=== PATIENT | male | born 1970 | race African-American/Black ===

== ENCOUNTER 2023-02-18 10:33 | Emergency (ER) | payer OTHER ==
[~2023-02-18] VITALS: Ht 180.3 cm; Wt 109.0 kg
[~2023-02-18 10:33] MED LIST: guaiFENesin ER TABLET 600 MG TAB PO SCH
[2023-02-18] MEDS ORDERED: BENZONATATE 100MG CAPSULE PO ONE (13:15)
[2023-02-18] MEDS ORDERED: MUCI1TAB16 PO (14:33)
[2023-02-18] MEDS ORDERED: BENZ200C70 PO (14:33)
[2023-02-18] MEDS ORDERED: SALI0.6530 NARES (14:36)
[2023-02-18 14:50] VITALS: BP 124/77; TEMP 97.9; O2SAT 98
[2023-02-18] MEDS ORDERED: guaiFENesin ER TABLET 600 MG TAB PO SCH (21:00)
== END 2023-02-18 14:49 | disposition home or self-care (01) ==
LOC: M ED 10:33
DX: R05.9 Cough, unspecified (principal); R09.81 Nasal congestion; C90.00 Multiple myeloma not having achieved remission

== ENCOUNTER 2023-11-02 17:48 | Emergency (ER) | payer OTHER ==
[~2023-11-02] VITALS: Ht 182.9 cm; Wt 97.4 kg
[~2023-11-02 17:48] MED LIST changes: +BENZ200C70 PO; +MUCI1TAB16 PO; +SODI88SP NARES; -guaiFENesin ER TABLET 600 MG TAB PO SCH
[2023-11-02 17:50] VITALS: TEMP 97.8
[2023-11-02 20:32] LABS: VENOUS BASE EXCESS 2.1 (-2.0-2.0); VENOUS HCO3 27.7 MMOL/L (23.0-27.0); VENOUS O2 SATURATION 94.1 % (60.0-80.0); VENOUS PH 7.388 UNITS (7.330-7.430); VENOUS STANDARD HCO3 26.2 MMOL/L; VENOUS TOTAL CO2 29.1 MMOL/L (24.0-28.0)
[2023-11-02 20:35] LABS: BASO % 0.5 % (0.0-1.0); EOS # 0.1 10^3/uL (0.0-0.5); EOS % 1.6 % (0.0-3.0); HEMATOCRIT 38.3 % (42.0-52.0); HEMOGLOBIN 12.9 g/dl (13.5-17.5); LYMPH # 1.3 10^3/uL (1.5-5.0); LYMPH % 30.2 % (24.0-44.0); MEAN CORPUSCULAR HEMOGLOBIN 28.6 pg (27.0-33.0); MEAN CORPUSCULAR HGB CONC 33.7 g/dl (32.0-36.5); MEAN CORPUSCULAR VOLUME 84.9 fl (80.0-96.0); MONO # 0.6 10^3/uL (0.0-0.8); MONO % 14.3 % (2.0-8.0); NEUTROPHILS # 2.4 10^3/uL (1.5-8.5); NEUTROPHILS % 53.2 % (36.0-66.0); PLATELET COUNT, AUTOMATED 237 10^3/uL (150-450); RED BLOOD COUNT 4.51 10^6/uL (4.30-6.10); WHITE BLOOD COUNT 4.4 10^3/uL (4.0-10.0)
[2023-11-02 21:08] LABS: CK-MB VALUE MASS 5.3 NG/ML (<3.6); ETHYL ALCOHOL (ETHANOL) < 0.003 % (0.000-0.010)
[2023-11-02 21:10] LABS: BLOOD UREA NITROGEN 10 MG/DL (9-23); CALCIUM LEVEL 9.3 MG/DL (8.5-10.1); CARBON DIOXIDE LEVEL 30 MMOL/L (20-31); CHLORIDE LEVEL 106 MMOL/L (98-107); CPK CREATINE PHOSPHOKINASE 602 U/L (46-171); CREATININE FOR GFR 1.07 MG/DL (0.70-1.30); GLOMERULAR FILTRATION RATE > 60.0 (>56); GLUCOSE, FASTING 85 MG/DL (60-100); MAGNESIUM LEVEL 2.3 MG/DL (1.8-2.4); MB/CK RELATIVE INDEX 0.88 (< OR =4); POTASSIUM SERUM 3.7 MMOL/L (3.5-5.1); SODIUM LEVEL 141 MMOL/L (136-145)
[2023-11-02 21:12] LABS: FREE T4 1.12 NG/DL (0.89-1.76)
[2023-11-02 21:15] VITALS: BP 122/74
[2023-11-02] MEDS ORDERED: ISOVUE-370 76% 100ML VIAL As Ordered ONE (21:17)
[2023-11-02 21:18] LABS: AMPHETAMINES LEVEL URINE NEGATIVE (NEGATIVE); BARBITURATES URINE NEGATIVE (NEGATIVE); BENZODIAZEPINES URINE NEGATIVE (NEGATIVE); CANNABINOIDS URINE NEGATIVE (NEGATIVE); COCAINE METABOLITE URINE NEGATIVE (NEGATIVE); METHADONE URINE NEGATIVE (NEGATIVE); OPIATES URINE NEGATIVE (NEGATIVE); PHENCYCLIDINE URINE NEGATIVE (NEGATIVE)
[2023-11-02 22:01] VITALS: O2SAT 99
== END 2023-11-02 22:35 | disposition home or self-care (01) ==
LOC: M ED 17:48
DX: G31.84 Mild cognitive impairment of uncertain or unknown etiology (principal); Z85.79 Personal history of other malignant neoplasms of lymphoid, hematopoietic and related tissues; Z79.899 Other long term (current) drug therapy
CPT/HCPCS: 70450; 71275; 80048; 80307; 82077; 82550; 82553; 82803; 83735; 84439; 84443; 84484; 85025; 87486; 87581; 87633; 87798; 93005; 93041; 94760; 99285; Q9967

== ENCOUNTER 2024-02-27 16:45 | Inpatient (IN) | payer OTHER ==
[~2024-02-27] VITALS: Ht 182.9 cm; Wt 86.3 kg
[2024-02-27] MEDS ORDERED: HOME MED LIST COMPLETE! XX SCH (17:35)
[2024-02-27 17:50] LABS: HEMOGLOBIN 13.7 g/dl (13.5-17.5); MEAN CORPUSCULAR HEMOGLOBIN 28.4 pg (27.0-33.0); MEAN CORPUSCULAR HGB CONC 32.6 g/dl (32.0-36.5); MEAN CORPUSCULAR VOLUME 87.1 fl (80.0-96.0); PLATELET COUNT, AUTOMATED 245 10^3/uL (150-450); RED BLOOD COUNT 4.82 10^6/uL (4.30-6.10); WHITE BLOOD COUNT 4.9 10^3/uL (4.0-10.0)
[2024-02-27 18:02] LABS: AMPHETAMINES LEVEL URINE NEGATIVE (NEGATIVE); BARBITURATES URINE NEGATIVE (NEGATIVE); BENZODIAZEPINES URINE NEGATIVE (NEGATIVE); CANNABINOIDS URINE NEGATIVE (NEGATIVE); COCAINE METABOLITE URINE NEGATIVE (NEGATIVE); METHADONE URINE NEGATIVE (NEGATIVE); OPIATES URINE NEGATIVE (NEGATIVE); PHENCYCLIDINE URINE NEGATIVE (NEGATIVE)
[2024-02-27 18:03] LABS: ETHYL ALCOHOL (ETHANOL) < 0.003 % (0.000-0.010)
[2024-02-27 18:05] LABS: ALBUMIN 4.2 G/DL (3.2-5.2); ALKALINE PHOSPHATASE 87 U/L (40-129); ALT/SGPT 25 U/L (7.0-40); AST/SGOT 27 U/L (<34); BILIRUBIN,DIRECT 0.2 MG/DL (<0.4); BILIRUBIN,TOTAL 0.6 MG/DL (0.3-1.2); BLOOD UREA NITROGEN 16 MG/DL (9-23); CALCIUM LEVEL 9.2 MG/DL (8.5-10.1); CARBON DIOXIDE LEVEL 28 MMOL/L (20-31); CHLORIDE LEVEL 108 MMOL/L (98-107); CREATININE FOR GFR 1.04 MG/DL (0.70-1.30); GLOMERULAR FILTRATION RATE > 60.0 (>56); GLUCOSE, FASTING 88 MG/DL (60-100); POTASSIUM SERUM 4.1 MMOL/L (3.5-5.1); SALICYLATE LEVEL < 3.0 MG/DL (<30); SODIUM LEVEL 141 MMOL/L (136-145); TOTAL PROTEIN 7.3 G/DL (5.7-8.2)
[2024-02-27 18:08] LABS: THYROID STIMULATING HORMONE 0.868 uIU/ML (0.55-4.78)
[2024-02-27 21:15] LABS: APPEARANCE, URINE CLEAR (CLEAR); BACTERIA, URINE AUTO NEGATIVE (NEGATIVE); BILIRUBIN, URINE AUTO NEGATIVE (NEGATIVE); BLOOD, URINE BLOOD 2+ (NEGATIVE); COLOR, URINE YELLOW (YELLOW); GLUCOSE, URINE (UA) AUTO NEGATIVE (NEGATIVE); KETONE, URINE AUTO NEGATIVE (NEGATIVE); LEUKOCYTE ESTERASE, URINE AUTO NEGATIVE (NEGATIVE); MUCUS, URINE SMALL (NEGATIVE); NITRITE, URINE AUTO NEGATIVE (NEGATIVE); PROTEIN, URINE AUTO NEGATIVE (NEGATIVE); RBC, URINE AUTO 12 /HPF (0-3); SPECIFIC GRAVITY URINE AUTO 1.017 (1.002-1.035); SQUAMOUS EPITHELIAL CELL UR AU 0 /HPF (0-6); WBC, URINE AUTO 0 /HPF (0-3)
[2024-02-27 21:52] LABS: RSV AMPLIFICATION NEGATIVE (NEGATIVE)
[2024-02-28] MEDS ORDERED: NICOTINE 14 MG/24 HR TRANSDERMAL TD SCH (09:00)
[2024-02-28] MEDS ORDERED: IBUPROFEN 400MG TAB PO PRN (09:25)
[2024-02-28] MEDS ORDERED: traZODone 50 MG TAB PO PRN (09:25)
[2024-02-28] MEDS ORDERED: MOM 30ML SUSPENSION UDC PO PRN (09:25)
[2024-02-28] MEDS ORDERED: ACETAMINOPHEN 325 MG TAB PO PRN (09:25)
[2024-02-28] MEDS ORDERED: MAALOX 30 ML SUSP *UDC PO PRN (09:25)
[2024-02-28 10:15] VITALS: BP 127/74; TEMP 97.2; O2SAT 100
[2024-02-28 15:33] VITALS: BP 112/68; TEMP 97.6; O2SAT 100
[2024-02-28] MEDS: OLANZapine 5 MG TAB PO SCH (20:02)
[2024-02-28] MEDS: OLANZapine 5 MG TAB PO PRN (20:55)
[2024-02-29 06:26] VITALS: BP 124/67; TEMP 97.3; O2SAT 100
[2024-02-29 15:13] VITALS: BP 108/66; TEMP 97.9; O2SAT 100
[2024-02-29] MEDS: OLANZapine 2.5MG TABLET PO SCH (20:39)
[2024-03-01 06:35] VITALS: BP 132/85; TEMP 97.3; O2SAT 97
== END 2024-03-01 14:40 | disposition home or self-care (01) | DRG 885 ==
LOC: M ED 16:45 → M ED INP 02-28 09:40 → M PSY 02-28 10:09
PROVIDERS: ADMIT Psychiatry & Neurology Psychiatry; ATTEND Psychiatry & Neurology Psychiatry
DX: F29 Unspecified psychosis not due to a substance or known physiological condition (principal); Z91.82 Personal history of military deployment; Z91.048 Other nonmedicinal substance allergy status